=== PATIENT | female | born 1990 ===

== ENCOUNTER 2017-12-18 08:29 | Emergency (ER) | payer OTHER ==
[2017-12-17 05:11] VITALS: BMI 30.4
[2017-12-18] MEDS ORDERED: Betamethasone Soluspan 30 mg/5mL Inj Susp IM ONE (09:30)
--- NOTE | 2017-12-18 10:57 | US ---
Date of service: 12/18/2017 PROCEDURE: OB Pelvic Ultrasound HISTORY: 34w 2d c/o vag bleed COMPARISON: None available. FINDINGS: UTERUS: Single live intrauterine fetus. BPD: 7.52 cm corresponding to 30 weeks and 1 day of gestational age. HC: 27.66 cm corresponding to 30 weeks and 2 days of gestational age. AC: 27.34 cm corresponding to 31 weeks and 3 days of gestational age. FL: 6.50 cm corresponding to 33 weeks and 4 days of gestational age. age (Ultrasound estimated): 31 weeks and 3 days Date of delivery (Ultrasound estimated) : 02/16/2018 Heart rate: 140 bpm. Celia-gestational hemorrhage: None. Placenta is posterior and low lying and the lower margin is 1.03 cm from the internal os. CERVIX: Long and closed. No cervical abnormality seen. FREE FLUID: None. OTHER FINDINGS: biophysical profile: breathin body movement: 2 Tone: 2 Amniotic Fluid: 2 Total: 8 IMPRESSION: Single live intrauterine fetus in vertex presentation with mean gestational age of 31 weeks and 3 days. Placenta is posterior and low-lying, the lower margin 1.03 cm from the internal os. The expected date of delivery by ultrasound is 02/16/2018. bowel physical profile score is 8, within normal limits.
--- NOTE | 2017-12-18 13:50 | OBHP ---
Datetime: 12/18/2017 10:25 IP Adm Impression: , intrauterine ; No Active Labor IP Admit Plan: Discharge home Admit Comment, IP Provider: 27 y.o. , LMP 04/22/17, SHANTEL 01/28/18, EGA 34w 2d referred for Celesto ne dose #2 due to c/o vaginal spotting 12/17/17; patient with a h/o low-lying placenta. Currently, clementine es any vaginal spotting. (+) AFM; denies LOF, Ctx. Last had intercourse "several months back". Prena froy care: Dr. Villarreal, low-lying; anemia. 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 No h/o STIs, abnormal Pap or fiborids. (+) ovarian cysts, 2016 PMH: denies PSH: 2016, laparoscopic left ovarian cystectomy NKDA Meds: PNV, iron - QD Soc Hx: denies tobacco, illicit drug or EtOH use. x 8 years. 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 no med issues. Father alive 62 y.o. HT, DM. No known fam h/o cancer P.E.: as above. WD in NAD. Awake, alert, oriented to time, person and place. Pleasnat and cooperat shan Assessment: 27 y.o. P1, 34w 2d for Celestone dose #2 - same administered. Category 1 tracing. H/O low-lying placenta - repeat utrasound performed - awaiting resluts. Patient is clinically stable. Plan: 1) Anaticipate discharge home 2) Will review S/S PTL 3) Keep scheduled appointment, 12/23/17 - will advise Dr. Vlilarreal 1125 hours: Dr. Villarreal evaluated patient and has cleared her for discharge Pelvic Type - PN: Not Done Extremities - PN: Normal Abdomen - PN: Normal Back - PN: Normal Breast - PN: Not Done Lungs - PN: Normal Heart - PN: Normal Thyroid - PN: Not Done Neurologic - PN: Normal HEENT - PN: Normal General - PN: Normal FHR - Baseline A Provider: 150 Contraction Comments Provider: none Comments, ACOG Physical Exam: Abdomen. Gravid. Sfot. Non tender. No bleeding appreciated All other systems reviewed and are negative (Annotations: Data stored by CPN on behalf of user) Gestation - Est Wks by US: 34w 2d EGA AdmitDate IP: 34.2 Vital Signs Provider: Reviewed; Within Normal Limits IP Chief Complaint: Other NICHD Variability Prov Fetus A: Moderate 6-25bpm NICHD Accel Fetus A IP Provider: 15X15 FHR Category Provider Fetus A: Category I NICHD Decel Fetus A IP Provider: None Dilatation, Provider: deferred Genitourinary Exam: Not Done DTRs - PN: Normal
[2017-12-18 15:13] VITALS: BP 114/73; PULSE 116
== END 2017-12-18 11:08 | disposition home or self-care (01) ==
LOC: C.EROB 08:29
DX: O26.853 Spotting complicating pregnancy, third trimester (principal); Z3A.34 34 weeks gestation of pregnancy
CPT/HCPCS: 76815; 76818; 96372; 99283; J0702

== ENCOUNTER 2018-01-15 17:22 | Emergency (ER) | payer OTHER ==
[2017-12-17 05:11] VITALS: BMI 30.4
--- NOTE | 2018-01-15 19:11 | OBHP ---
Datetime: 01/15/2018 18:35 IP Adm Impression: Term, intrauterine ; No Active Labor IP Chief Complaint Other: Vaginal spotting IP Admit Plan: Discharge home Admit Comment, IP Provider: 28 y.o. , LMP 04/22/17, SHANTEL 01/27/18, EGA 38w 2d - passed bloold-ting ed discharge approximately 1530 hours. (+) Abdominal tightening: onset 01/14/18, all day, into night a nd earlier. Pain scale 3/10; very intemittent. After noticing vaginal dischagre, no crampong x 1 hr, then cramping resumed, every 10 - 15 minutes, pain scale 4/10. (+) AFM; denies LOF. care: Sabrina Villarreal. Low-lying placenta - per patient, most recent ultrasound, placenta 1.5 cm from internal os. 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 Soc Hx: denies tobacco, illicit drug or EtOH use. x 8 years. 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 no med issues. Father alive 62 y.o. - DM P. E.: as above. WD in NAD. Awake, alert, oriented to time, person and place. Pleasant and coopera tive Assessment: 28 y.o. P1, 38w 2d, not in labor. Category 1 tracing. H/O low lying placenta; per humera ent and , D/W Dr. Villarreal will attempt vaginal delivery. H/O anemia - stable. Patient is clinic ally stable. Plan: 1) Discharge home 2) Reviewed S/S labor 3) Keep scheduled appointment, Saturday 01/20 - as per, and D/W, Dr. Villarreal Pelvic Type - PN: Adequate Extremities - PN: Normal Abdomen - PN: Normal Back - PN: Normal Breast - PN: Normal Lungs - PN: Normal Heart - PN: Normal Thyroid - PN: Not Done Neurologic - PN: Normal HEENT - PN: Normal General - PN: Normal Presentation-Admit: Vertex FHR - Baseline A Provider: 140 Contraction Comments Provider: irregular Comments, ACOG Physical Exam: Abdomen: Gravid. moderately firm with contractions. Fundal height 35cm All other systems reviewed and are negative Gestation - Est Wks by US: 38w 2d EGA AdmitDate IP: 38.2 Vital Signs Provider: Reviewed IP Chief Complaint: Other NICHD Variability Prov Fetus A: Moderate 6-25bpm NICHD Accel Fetus A IP Provider: 15X15 FHR Category Provider Fetus A: Category I NICHD Decel Fetus A IP Provider: None Dilatation, Provider: 1 Effacement, Provider: 30 Station, Provider: high Genitourinary Exam: Normal DTRs - PN: Not Done
[2018-01-15 23:20] VITALS: BP 105/60; PULSE 77; TEMP 97.5
== END 2018-01-15 18:40 | disposition home or self-care (01) ==
LOC: C.EROB 17:22
DX: O47.1 False labor at or after 37 completed weeks of gestation (principal); Z3A.38 38 weeks gestation of pregnancy

== ENCOUNTER 2018-01-20 11:51 | Inpatient (IN) | payer OTHER ==
[2017-12-17 05:11] VITALS: BMI 30.4
[2018-01-20] MEDS ORDERED: Lactated Ringer's 1,000 ML IV ONE (14:17)
[2018-01-20 15:31] LABS: URINE BILIRUBIN NEGATIVE (NEGATIVE); URINE BLOOD 3+ (NEGATIVE); URINE CLARITY Clear (Clear); URINE COLOR Straw (YELLOW); URINE GLUCOSE (UA) NORMAL (Normal); URINE LEUKOCYTE ESTERASE NEG Leu/uL (Negative); URINE PROTEIN NEGATIVE (NEGATIVE); URINE UROBILINOGEN NORMAL mg/dL (0.2-1.0)
[2018-01-20] MEDS ORDERED: Lactated Ringer's 1,000 ML IV SCH (16:00)
--- NOTE | 2018-01-20 16:20 | OBADHP ---
Datetime: 01/20/2018 15:58 IP Admit Plan Other: cervical ripening Admit Comment, IP Provider: 28 y.o. , LMP 04/22/17, SHANTEL 01/27/18, EGA 39wk c/o vaginal bleeidn g x 3 episodes at home earlier today; after cervical examnation by PMD at approximately 0930 hours. ( +) AFM. Denies LOF. Ctx are getting stronger, since 01/15/18; now 4/10 to 5/10, every 10- 15 minutes; care: Dr. Crystal Villarreal; low lying placneta, 1/5 cm from internal os. 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 No h/o STIs, abnormal Pap PMH: anemia PSH: 2016, laparoscopic left ovarian cystectomy NKDA Meds: PNV, iron - each, QD. Soc Hx: denies tobacco, illicit drug or EtOH use. x 8 years. 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 no med issues. Father alive 62 y.o. - DM Assessment: 28 y.o. P1, 39 weeks, prolonged latent phase of labor. Category 1 traicing. Patient wi th bloody show during examinaiton; not actively bleeding. Case D/W Dr. Crystal Villarreal; will admit for d elivery. start with cervical ripening. possible pitocin. 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 Also receptive to epidural for pain relief. Clinically stable Plan: 1) Admit 2) NPO 3) IVFs 4()Continuous EFM 5) Admission labs 6) Cytotec buccally x 1 7) Epidural, upon request 8) Anticipate vaginal delivery - as per, and discussed with, Dr. Villarreal Pelvic Type - PN: Adequate Extremities - PN: Normal Abdomen - PN: Normal Back - PN: Normal Breast - PN: Not Done Lungs - PN: Normal Heart - PN: Normal Thyroid - PN: Not Done Neurologic - PN: Normal HEENT - PN: Normal General - PN: Normal Presentation-Admit: Vertex FHR - Baseline A Provider: 145 Contraction Comments Provider: 5-6 Comments, ACOG Physical Exam: Abdomen: Gravid. Soft. All other systems reviewed and are negative Gestation - Est Wks by US: 39.0 IP Hx Assessment: The History has been Reviewed and is Current IP Chief Complaint: Vaginal bleeding NICHD Variability Prov Fetus A: Moderate 6-25bpm NICHD Accel Fetus A IP Provider: 15X15 FHR Category Provider Fetus A: Category I NICHD Decel Fetus A IP Provider: None Dilatation, Provider: 4 Effacement, Provider: 40 Station, Provider: -3 Genitourinary Exam: Normal DTRs - PN: Not Done EGA AdmitDate IP: 39.0 IP Adm Impression: Term, intrauterine ; No Active Labor IP Admit Plan: Admit to unit; Initiate labor protocol Datetime: 01/15/2018 18:35 IP Chief Complaint Other: Vaginal spotting Vital Signs Provider: Reviewed
[2018-01-20 16:58] LABS: BASO % 0.2 % (0.0-2.0); EOS % 0.2 % (0.0-4.0); HEMOGLOBIN 12.6 g/dL (11.0-16.0); LYMPH # 2.3 K/uL (1.0-4.3); LYMPH % 19.1 % (20.0-40.0); MEAN CELL VOLUME 87.8 fL (81.0-99.0); MEAN CORPUSCULAR HEMOGLOBIN 29.6 pg (27.0-31.0); MEAN CORPUSCULAR HGB CONC 33.7 g/dL (33.0-37.0); MEAN PLATELET VOLUME 9.4 fL (7.2-11.7); MONO # 0.5 K/uL (0.0-0.8); NEUT # 9.3 K/uL (1.8-7.0); NEUT % 76.5 % (50.0-75.0); NRBC % 0.1 % (0.0-2.0); RBC 4.26 Mil/uL (3.80-5.20); RED CELL DISTRIBUTION WIDTH 13.8 % (11.5-14.5); WHITE BLOOD COUNT 12.2 K/uL (4.8-10.8)
[2018-01-20 17:32] LABS: ALB/GLOB RATIO 1.1 (1.0-2.1); ALBUMIN 3.8 g/dL (3.5-5.0); ALT/SGPT 29 U/L (9-52); AST/SGOT 23 U/L (14-36); BLOOD UREA NITROGEN 5 mg/dL (7-17); CALCIUM 9.3 mg/dl (8.6-10.4); GFR NON-AFRICAN AMERICAN > 60
[2018-01-20] MEDS ORDERED: Bupivacaine HCl/FentaNYL Cit 100 ML EPI ONE (17:32)
[2018-01-20 18:02] LABS: HEPATITIS B SURFACE AG Negative (NEGATIVE)
[2018-01-20] MEDS ORDERED: Oxytocin 30 UNIT 30 UNITS/500 ML BAG IV ONE ×2 (19:59→22:03)
[2018-01-20] MEDS ORDERED: Lidocaine Hydrochloride 0 ML INJ ONE (22:17)
[2018-01-20] MEDS ORDERED: Benzocaine/Menthol 20%-0.5% Topical Spray (60 ml) TOP PRN (23:08)
[2018-01-20] MEDS ORDERED: Oxycodone/Acetaminophen 5/325 mg Tab PO PRN ×2 (23:08)
--- NOTE | 2018-01-20 23:14 | OBDS ---
MATERNAL INFORMATION Provider Comments: pt was fullly diltaed and pushing. atraumatic spontanoeus deliver of head in OA p osition, no nuchal cord noted. Atruamtic, spontaneous dlieveyr of anterior followd by posteiror shoul er followed by delivery of body. boht oral and nasal pasages of baby bulb suctioned. ubmcils cord cla mpd and cut. true knot noted in cord. baby handed ot mother on abdmen with rn assistance. cord blood adn cord gases collected and sent x 2. Spotnaeous deliveyr of intact placenta with membranes. Fundus firm, second degree perineal laceration noted adn repaired iwth 2-0 chormic. good hemostais. live fem lae infnat. apars 9,9 . ebl 400mlno complicaitons 6lb 1 ounce LABOR SUMMARY EDC: 01/27/2018 00:00 No. Babies in Womb: 1 Attempted: No Labor Anesthesia: Epidural LABOR INFORMATION Onset of Labor: 01/20/2018 08:00 Complete Dilatation: 01/20/2018 22:10 Cervical Ripening Agents: Cytotec @ (Annotations: 50 mcg SL-buccal) Group B Beta Strep: Negative MEMBRANES Membranes Rupture Method: Spontaneous Rupture of Membranes: 01/20/2018 17:55 Length of Rupture (hrs): 4.95 Amniotic Fluid Color: Clear Amniotic Fluid Amount: Small Amniotic Fluid Odor: None STAGES OF LABOR Stage 1 hrs: 14 Stage 1 min: 10 Stage 2 hrs: 0 Stage 2 min: 42 Stage 3 hrs: 0 Stage 3 min: 5 Total Time in Labor hrs: 14 Total Time in Labor min: 57 VAGINAL DELIVERY Episiotomy: None Laceration Extension: Second Degree Laceration Type: Perineal Laceration Repair: Yes BABY A INFORMATION Infant Delivery Date/Time: 01/20/2018 22:52 Method of Delivery: Vaginal Born in Route : No : N/A Forceps: N/A Vacuum Extraction: N/A Shoulder Dystocia : No SHOULDER DYSTOCIA BABY A Infant Delivery Date/Time: 01/20/2018 22:52 PRESENTATION/POSITION BABY A Presentation: Cephalic Cephalic Presentation: Vertex Vertex Position: Right Occipital Anterior Breech Presentation: N/A PLACENTA INFORMATION BABY A Placenta Delivery Time : 01/20/2018 22:57 Placenta Method of Delivery: Spontaneous Placenta Status: Delivered SCORES BABY A Heart Rate 1 min: >100 bpm Resp Effort 1 min: Good Cry Reflex Irritability 1 min: Cough or Sneeze or Pulls Away Muscle Tone 1 min: Active Motion Color 1 min: Body [place], Extremities Blue SCORE 1 MIN: 9 Heart Rate 5 min: >100 bpm Resp Effort 5 min: Good Cry Reflex Irritability 5 min: Cough or Sneeze or Pulls Away Muscle Tone 5 min: Active Motion Color 5 min: Body [place], Extremities Blue SCORE 5 MIN: 9 INFANT INFORMATION BABY A Gestational Age at Delivery: 39.0 Gestational Status: Term Outcome : Liveborn Condition : Stable Sex: Female IDENTIFICATION/MEDS BABY A ID Band Number: [id number] Sensor Number: [id number] WEIGHT/LENGTH BABY A Birthweight (gms): 2755 Infant Weight (lb): 6 Infant Weight (oz): 1 CORD INFORMATION BABY A No. Cord Vessels: 3 Nuchal Cord : N/A True Knot: 1 Cord Blood Taken: Yes Suction: Mouth
[2018-01-21 08:56] LABS: BASO % 0.3 % (0.0-2.0); EOS % 0.1 % (0.0-4.0); LYMPH # 1.7 K/uL (1.0-4.3); MEAN CELL VOLUME 87.5 fL (81.0-99.0); MEAN CORPUSCULAR HEMOGLOBIN 30.2 pg (27.0-31.0); MEAN CORPUSCULAR HGB CONC 34.5 g/dL (33.0-37.0); MEAN PLATELET VOLUME 9.3 fL (7.2-11.7); MONO # 0.6 K/uL (0.0-0.8); NEUT # 11.6 K/uL (1.8-7.0); NEUT % 83.6 % (50.0-75.0); RBC 3.52 Mil/uL (3.80-5.20); RED CELL DISTRIBUTION WIDTH 13.7 % (11.5-14.5); WHITE BLOOD COUNT 13.9 K/uL (4.8-10.8)
[2018-01-21 09:00] LABS: HEMOGLOBIN 10.6 g/dL (11.0-16.0)
[2018-01-21] MEDS: Multiple Vitamins Tab PO SCH (10:02)
[2018-01-22 00:07] VITALS: O2SAT 99
[2018-01-22 08:43] VITALS: BP 94/52; PULSE 75; RESP 18; TEMP 97.8
[2018-01-22] MEDS: Multiple Vitamins Tab PO SCH (09:29)
== END 2018-01-22 14:30 | disposition home or self-care (01) | DRG 774 ==
LOC: C.EROB 11:51 → UNDOADMIN 14:17 → C.4D 14:17 → C.4M 01-21 01:00
PROVIDERS: ADMIT Obstetrics & Gynecology; ATTEND Obstetrics & Gynecology
PROC: 10E0XZZ Delivery of Products of Conception, External Approach (ICD-10-PCS; principal; 2018-01-20)
PROC: 0KQM0ZZ Repair Perineum Muscle, Open Approach (ICD-10-PCS; 2018-01-20)
DX: O44.53 Low lying placenta with hemorrhage, third trimester (principal); O69.2XX0 Labor and delivery complicated by other cord entanglement, with compression, not applicable or unspecified; O63.0 Prolonged first stage (of labor); O70.1 Second degree perineal laceration during delivery; Z3A.39 39 weeks gestation of pregnancy; Z37.0 Single live birth